=== PATIENT | female | born 1965 | race Caucasian/White ===

== ENCOUNTER 2021-09-07 08:02 | Outpatient (CLI) | payer BC, SELFPAY ==
[2021-09-07 12:01] LABS: Albumin* 4.4 g/dL (3.3-5.0); Chloride* 104 mmol/L (96-114); Sodium* 139 mmol/L (135-149)
[2021-09-07 12:03] LABS: Cholesterol* 174 mg/dL (90-199)
[2021-09-07 12:04] LABS: Aspartate Amino Transferase* 37 U/L (12-35); Blood Urea Nitrogen* 12 mg/dL (7-30); Carbon Dioxide* 30 mmol/L (20-32); Creatinine* 0.6 mg/dL (0.5-1.5); Estimated Glomerular Filt Rate 105 ml/min; Glucose* 90 mg/dL (60-115); Total Protein* 6.8 g/dL (6.0-8.3); Triglycerides* 263 mg/dL (40-149)
[2021-09-07 12:05] LABS: Alanine Aminotransferase* 27 U/L (4-35); Alkaline Phosphatase* 100 U/L (40-150); Calcium* 10.1 mg/dL (8.4-10.6); HDL Cholesterol* 45 mg/dL (>=50); LDL Cholesterol Calculated 76 mg/dL (<100)
== END 2021-09-07 08:03 | disposition home or self-care (01) ==
PROVIDERS: PCP Family Medicine; Visit Provider Family Medicine
DX: Z00.00 Encounter for general adult medical examination without abnormal findings (principal); E78.5 Hyperlipidemia, unspecified; F32.A Depression, unspecified; L98.9 Disorder of the skin and subcutaneous tissue, unspecified
CPT/HCPCS: 80053; 80061

== ENCOUNTER 2022-10-03 09:19 | Outpatient (CLI) | payer BC, SELFPAY | END 2022-10-03 09:20 | disposition home or self-care (01) | PROVIDERS: PCP Family Medicine; Visit Provider Family Medicine | DX: Z00.00 Encounter for general adult medical examination without abnormal findings (principal); E78.5 Hyperlipidemia, unspecified; R35.0 Frequency of micturition; I48.20 Chronic atrial fibrillation, unspecified | CPT/HCPCS: 80048; 80061; 81015; 84460; 87086 ==

== ENCOUNTER 2023-08-31 15:13 | Outpatient (CLI) | payer OTHER, SELFPAY ==
--- OUTSIDE RECORDS SUMMARY | 2023-08-31 15:20 | XMS_ITS | Clinical Summary ---
Author Organization [place] Address [address] [place], [place] [address]. [place] [address] Care Team Providers Care Motorboat Mechanic Inboard/Outboard Name Role Phone Tita Small MD Primary Care Provider + Allergies No known active allergies Medications Medication Sig Dispensed Refills Start Date End Date Status buPROPion (WELLBUTRIN) 75 MG tablet Take by mouth daily Active aspirin 81 MG tabletIndications:Paro xysmal atrial fibrillation (H) Take 1 tablet (81 mg) by mouth daily 30 tablet 3 10/25/2016 Active atorvastatin (LIPITOR) 10 MG tablet Take 10 mg by mouth daily Active cyanocobalamin (VITAMIN B-12) 1000 MCG tablet Take 1,000 mcg by mouth daily Active Ginseng 250 MG CAPS Take 1 capsule by mouth daily Active Active Problems No known active problems Encounters Date Type Department Care Team Description 08/22/2023 8:50 AM CDT Ancillary Procedure [facility] [place] [address] [facility] [address] [place] [address] Kathryn Cook MD Cardiac pacemaker in situ 08/22/2023 Travel 08/20/[address] [facility] [address] [facility] [address] [place] [phone] Sarah Holt RN Atrioventricular block, complete (H) (Primary Dx); Permanent atrial fibrillation (H) from Last 3 Months Family History Medical History Relation Comments Pacemaker Other Coronary Artery Disease Early Onset No family hx of Relation Status Comments Other Social History Tobacco Use Types Packs/Day Years Used Date Smoking Tobacco: Former Smokeless Tobacco: Never Alcohol Use Standard Drinks/Week Comments Not Currently 0 (1 standard drink = 0.6 oz pur e alcohol) Adolescent Education Answer Date Record ed Getting School Help Needed Not on file 11/10 Sex and Gender Information Value Date Recorded Sex Assigned at Not on file Gender Identity Not on file Sexual Orientation Not on file Last Filed Vital Signs Vital Sign Reading Time Taken Comments Blood Pressure 110/80 12/07/2021 2:06 PM CDT Pulse 60 12/07/2021 2:06 PM CDT Temperature 36.5 ??C (97.7 ??F) 08/17/2016 6:55 AM CD T Respiratory Rate 11 09/22/2016 12:50 PM CDT Oxygen Saturation 98% 12/07/2021 2:06 PM CDT Inhaled Oxygen Concentration - - Weight 77.6 kg (171 lb) 12/07/2021 2:06 PM CDT Height 165.1 cm (5' 5) 12/07/2021 2:06 PM CDT Body Mass Index 28.46 12/07/2021 2:06 PM CDT Plan of Treatment Upcoming Encounters Date Type Department Care Team (Late st Contact Info) Description 12/03/2023 Ancillary Procedure [facility] [address] [facility] [address] [place] [phone] Kathryn Cook MD [address] [place] [address] 01/22/2024 Ancillary Procedure [facility] [address] [facility] [address] [place] [phone] Kathryn Cook MD [address] [place] [id number] Health Maintenance Due Date Last Done Comments ADVANCE CARE PLANNING 1965 ANNUAL REVIEW OF HM ORDERS 1965 CT COLONOGRAPHY 1965 FIT 1965 FLEX SIG 1965 LIPID 1965 YEARLY PREVENTIVE VISIT 1965 sDNA (Cologuard) 1965 Pneumococcal Vaccine: Pediatrics (0 to 5 Years) and At-Risk Patients (6 to 64 Years) (1 of 2 - PCV) 05/08/1971 COLONOSCOPY 05/08/1975 COLORECTAL CANCER SCREENING 05/08/1975 HIV SCREENING 1980 HEPATITIS C SCREENING 05/08/1983 HEPATITIS B IMMUNIZATION (1 of 3 - 19+ 3-dose series) 1984 LUNG CANCER SCREENING 05/08/2015 ZOSTER IMMUNIZATION (1 of 2) 05/08/2015 PAP 06/15/2018 06/16/2015 MAMMO SCREENING 06/20/2018 06/20/2016 GLUCOSE 08/18/2019 08/17/2016 COVID-19 Vaccine (3 - 2022- season) 2022 06/08/2020, 05/18/2020 PHQ-2 (once per calendar year) 2023 INFLUENZA VACCINE (#1) 2023 DTAP/TDAP/TD IMMUNIZATION (3 - Td or Tdap) 06/23/2027 06/22/2017, 06/10/2013, 03/19/2002, Additional history exists HPV IMMUNIZATION Aged Out No longer e ligible based on patient's age to complete this topic IPV IMMUNIZATION Aged Out No longer e ligible based on patient's age to complete this topic MENINGITIS IMMUNIZATION Aged Out No l onger eligible based on patient's age to complete this topic RSV MONOCLONAL ANTIBODY Aged Out No l onger eligible based on patient's age to complete this topic Medical Devices Implanted Type Area Internet Sales Representative Device Identifier Shelf Expiration Date Model / Serial / Lot Right Atrial Lead-08/17/2016 Implanted:08/17 by Dank Hsieh MD (Quantity not on file) Leads [employer] [id number] / [id number] / Right Ventricular Lead-08/17/2016 Implanted:08/17 by Dank Hsieh MD (Quantity not on file) Leads [employer] [id number] / [id number] / Pacemaker-Sjm Implanted:08/17 by Dank Hsieh MD (Quantity not on file) Pacemaker [employer] ASSURITY MRI [id number] / [id number] / Procedures Procedure Name Priority Date/Time Associated Diagnosis Comments PM DEVICE PROGRAMMING EVAL, SINGLE LEAD PACER Routine 08/22/2023 8:40 AM CDT Cardiac pacemaker in situ BASIC METABOLIC PANEL STAT 08/17/2016 7:20 AM CDT Chronic atrial fibrillation (H) from Last 3 Months or Most Recently Relevant to Health Maintenance Results * PM DEVICE PROGRAMMING EVAL, SINGLE LEAD PACER (08/22/2023 8:40 AM CDT) Date Time Interrogation Session [id number] [employer] Implantable Pulse Generator Internet Sales Representative [facility] [employer] Implantable Pulse Generator Model 2272 Assurity MRI [employer]ONIC Implantable Pulse Generator Serial Number [id number] [employer] Type Interrogation Session In Clinic [facility] Clinic Name [facility] [employer] Implantable Pulse Generator Type Pacemaker [employer] Implantable Pulse Generator Implant Date 20160817 [employer] Implantable Lead Internet Sales Representative [facility] [employer] Implantable Lead Model [id number] Tendril MRI [employer] Implantable Lead Serial Number [id number] [employer] Implantable Lead Implant Date 20160817 [employer] Implantable Lead Polarity Type Bipolar Lead [employer]IC Implantable Lead Location Detail 1 UNKNOWN [employer] Implantable Lead Location Right Atrium [employer] Implantable Lead Connection Status Connected [employer] Implantable Lead Internet Sales Representative [facility] [employer] Implantable Lead Model [id number] Tendril MRI [employer] Implantable Lead Serial Number [id number] [employer]IC Implantable Lead Implant Date 20160817 [employer]IC Implantable Lead Polarity Type Bipolar Lead [employer]IC Implantable Lead Location Detail 1 UNKNOWN [employer] Implantable Lead Location Right Ventricle [employer] Implantable Lead Connection Status Connected [employer] [place] Setting Mode (NBG Code) VVIR [employer] [place] Setting Lower Rate Limit 60 {beats}/ min [employer] [place] Setting Maximum Sensor Rate 130 {beats}/ min [employer] [place] Setting Hysterisis Rate Off [employer] [place] Setting Night Rate Off [employer] Lead Channel Setting Sensing Polarity Bipolar [employer] Lead Channel Setting Sensing Sensitivity 0.5 mV [employer] Lead Channel Setting Sensing Polarity Bipolar [employer] Lead Channel Setting Pacing Polarity Bipolar [employer] Lead Channel Setting Pacing Pulse Width 0.5 ms [employer] Lead Channel Setting Pacing Amplitude 1.375 [employer] Lead Channel Setting Pacing Capture Mode Adaptive [employer] Lead Channel Setting Pacing Polarity Bipolar [employer] Lead Channel Sensing Intrinsic Amplitude 3.2 mV [employer] Lead Channel Pacing Threshold Amplitude 0.75 V [employer] Lead Channel Pacing Threshold Pulse Width 0.5 ms [employer] Lead Channel Impedance Value 425.0 ohm [employer] Lead Channel Sensing Intrinsic Amplitude 3.2 mV [employer] Lead Channel Pacing Threshold Amplitude 1.25 V [employer] Lead Channel Pacing Threshold Pulse Width 0.5 ms [employer] Lead Channel Pacing Threshold Amplitude 1.25 V [employer] Lead Channel Pacing Threshold Pulse Width 0.5 ms [employer] Battery Status Unknown [employer] Battery Remaining Longevity 48 mo [employer] Battery Voltage 2.98 V [employer] [place] Statistic RA Percent Paced 0 % [employer] [place] Statistic RV Percent Paced 98.0 % [employer] Atrial Tachy Statistic Number Of Mode Switches 0.0 [employer] Anatomical Region Laterality Modality Other 08/22/2023 9:09 AM CDT Narrative 08/22/2023 1:[address] (D) Pacemaker Device Check Patient seen in clinic for device evaluation and iterative programming. AP: NA% ?? STRAINER CLEANER: 98 % ?? Mode: VVIR 60 ?? Underlying Rhythm: AF with CHB, no JE at VVI 30 ?? Heart Rate: primarily 60s. See rate response changes below Sensing: slightly low but stable in V (3.9mV) ?? Pacing Threshold: WNL ?? Impedance: WNL ?? Battery Status: 4-4.5yrs estimated longevity ?? Device Site: WN ?? Atrial Arrhythmia: chronic AF, not on AC due to low ChadsVasc score ?? Ventricular Arrhythmia: none Setting Change: slope increased from 10-12 Care Plan: remote in 6 months 01/22/24. (this was previously okayed by Dr. Perez). OV with EP GARCIA due, orders in. ?? Spring, RN I have reviewed and interpreted the device interrogation, settings, programming and nurse's summary. The device is functioning within normal device parameters. I agree with the current findings, assessment and plan. Kathryn Cook MD [facility] CARDI[facility] SERVICES ORDERABLES * Basic metabolic panel (08/17/2016 7:20 AM CDT) Sodium 141 133 - 144 mmol/L [facility] Potassium 3.8 3.4 - 5.3 mmol/L [facility] Chloride 107 94 - 109 mmol/L [facility] Carbon Dioxide 25 20 - 32 mmol/L [facility] Anion Gap 9 3 - 14 mmol/L [facility] Glucose 95 70 - 99 mg/dL [facility] Urea Nitrogen 15 7 - 30 mg/dL [facility] Creatinine 0.56 0.52 - 1.04 mg/dL [facility] GFR Estimate >90 Non GFR Calc >60 mL/min/1. 7m2 [facility] GFR Estimate If Black >90 GFR Calc >60 mL/min/1. 7m2 [facility] Calcium 9.2 8.5 - 10.1 mg/dL [facility] Blood specimen (specimen) 08/17/2016 7:20 AM CDT 08/17/2016 7:37 AM CDT Dank Cedric Hsieh MD LAB - BLOOD ORDERABL ES [facility] [address] [place] [address], [facility] [phone] from Last 3 Months or Most Recently Relevant to Health Maintenance Care Teams Motorboat Mechanic Inboard/Outboard Relationship Specialty Start Date End Date Tita Small MD [facility] [address] [place] [address] PCP - General Family Practice 03/06/18
--- OUTSIDE RECORDS SUMMARY | 2023-08-31 15:21 | XMS_ITS | Encounter Summary ---
Author Organization [place] Address [address] [place] [address] Care Team Providers Care Driver Engineer Name Role Phone Tita Small MD Primary Care Provider + Reason for Visit * CV Testing (Routine) - Pending Review Specialty Diagnoses / Procedures Referred By Contac t Referred To Contact Diagnoses Cardiac pacemaker in situ Procedures Cardiac Device Check - In Clinic Kathryn Cook MD [address] [place] [address] Referral ID Status Reason Start Date Expiration Date V isits Requested Visits Authorized [id number] Pending Review 08/03/2023 08/02/2024 1 1 Encounter Details Date Type Department Care Team (Late st Contact Info) Description 08/22/2023 8:50 AM CDT Ancillary Procedure [facility] Heart [address] [place] [phone] Kathryn Cook MD [address] [place], [place] [phone] Cardiac pacemaker in situ Social History Tobacco Use Types Packs/Day Years [...] on file Sexual Orientation Not on file documented as of this encounter Plan of Treatment Upcoming Encounters Date Type Department Care Team (Late st Contact Info) Description 12/03/2023 Ancillary Procedure [facility] [address] [facility] [address] [place] [phone] Kathryn Cook MD [address] [place] [id number] 01/22/2024 Ancillary Procedure [facility] [address] [facility] [address] [place] [phone] Kathryn Cook MD [address] [place] [id number] documented as of this encounter Procedures Procedure Name Priority Date/Time Associated Diagnosis Comments PM DEVICE PROGRAMMING EVAL, SINGLE LEAD PACER Routine 08/22/2023 8:40 AM CDT Cardiac pacemaker in situ documented in this encounter Results * PM DEVICE PROGRAMMING EVAL, SINGLE LEAD PACER (08/22/2023 8:40 AM CDT) Date Time Interrogation Session [id number] [employer] Implantable Pulse Generator Conflicts Analyst [facility] [employer] Implantable Pulse Generator Model 2272 Assurity MRI MED[employer]ONIC Implantable Pulse Generator Serial Number [id number] [employer] Type Interrogation Session In Clinic [facility] Clinic Name [facility] [employer]IC Implantable Pulse Generator Type Pacemaker [employer]IC Implantable Pulse Generator Implant Date 20160817 [employer] Implantable Lead Conflicts Analyst [facility] [employer] Implantable Lead Model [id number] Tendril MRI [employer]ONIC Implantable Lead Serial Number [id number] MED[employer]ONIC Implantable Lead Implant Date 20160817 [employer]IC Implantable Lead Polarity Type Bipolar Lead [employer]IC Implantable Lead Location Detail 1 UNKNOWN [employer]IC Implantable Lead Location Right Atrium [employer] Implantable Lead Connection Status Connected [employer] Implantable Lead Conflicts Analyst [facility] [employer] Implantable Lead Model [id number] Tendril MRI [employer] Implantable Lead Serial Number [id number] [employer] Implantable Lead Implant Date 20160817 [employer]IC [...] evaluation and iterative programming. AP: NA% ?? DIRECTOR OF MANUFACTURING: 98 % ?? Mode: VVIR 60 ?? Underlying Rhythm: AF with CHB, no JE at VVI 30 ?? Heart Rate: primarily 60s. See rate response changes below Sensing: slightly low but stable in V (3.9mV) ?? Pacing Threshold: WNL ?? Impedance: WNL ?? Battery Status: 4-4.5yrs estimated longevity ?? Device Site: WNL ?? Atrial Arrhythmia: chronic AF, not on AC due to low ChadsVasc score ?? Ventricular Arrhythmia: none Setting Change: slope increased from 10-12 Care Plan: remote in 6 months 01/22/24. (this was previously okayed by Dr. Perez). OV with EP GARCIA due, orders in. ?? Sarah, RN I have reviewed and interpreted the device interrogation, settings, programming and nurse's summary. The device is functioning within normal device parameters. I agree with the current findings, assessment and plan. Kathryn Cook MD CV CARDIAC SERVICES ORDERABLES documented in this encounter Visit Diagnoses Diagnosis Cardiac pacemaker in situ documented in this encounter Care Teams Driver Engineer Relationship Specialty Start Date End Date Tita Small MD [facility] & [address] [address] PCP - General Family Practice 03/06/18 documented as of this encounter
--- OUTSIDE RECORDS SUMMARY | 2023-08-31 15:21 | XMS_ITS | Referral Summary ---
Author Organization [facility] Address [address] [place] [address]. [place] [address] Care Team Providers Care Candy Forming Machine Operator Name Role Phone Tita Small MD Primary Care Provider + Encounters Date Type Department Care Team Description 08/22/2023 Travel 08/22/2023 8:50 AM CDT Ancillary Procedure [facility] [place] [address] [place] [address] [address] [place] [phone] Kathryn Cook MD Cardiac pacemaker in situ 08/20/2023 Orders Only [facility] [address] [facility] [address] [place] [phone] Sarah Holt RN Atrioventricular block, complete (H) (Primary Dx); Permanent atrial fibrillation (H) from Last 3 Months Allergies No known active allergies Medications Medication [...] Active Active Problems No known active problems Social History Tobacco Use Types Packs/Day Years [...] st Contact Info) Description 12/03/2023 Ancillary Procedure [facility] [address] [facility] [address] [place] [phone] Kathryn Cook MD [address] [place] [address] 01/22/2024 Ancillary Procedure [facility] [address] [facility] [address] [place] [phone] Kathryn Cook MD [address] [place] [id number] Medical Devices Implanted Type Area Information Technology Coordinator Device Identifier Shelf Expiration Date Model / Serial / Lot Right Atrial Lead-08/17/2016 Implanted:08/17 by Dank Hsieh MD (Quantity not on file) Leads [employer] [id number] / [id number] / Right Ventricular Lead-08/17/2016 Implanted:08/17 by Dank Hsieh MD (Quantity not on file) Leads [employer] [id number] / [id number] / Pacemaker-Sjm Implanted:08/17 by Dank Hsieh MD (Quantity not on file) Pacemaker [employer] ASSURITY MRI [id number] / [id number] / Procedures Procedure Name Priority Date/Time Associated [...] 8:40 AM CDT) Date Time Interrogation Session [id number] [employer] Implantable Pulse Generator Information Technology Coordinator [facility] [employer] Implantable Pulse Generator Model 2272 Assurity MRI MEDTRONIC Implantable Pulse Generator Serial Number [id number] [employer]IC Type Interrogation Session In Clinic [facility] Clinic Name [facility] [employer]IC Implantable Pulse Generator Type Pacemaker MED[employer]IC Implantable Pulse Generator Implant Date 20160817 [employer] Implantable Lead Information Technology Coordinator [facility] [employer] Implantable Lead Model [id number] Tendril MRI [employer]ONIC Implantable Lead Serial Number [id number] MED[employer]ONIC Implantable Lead Implant Date 20160817 MED[employer]ONIC Implantable Lead Polarity Type Bipolar Lead [employer]IC Implantable Lead Location Detail 1 UNKNOWN MED[employer]ONIC Implantable Lead Location Right Atrium [employer] Implantable Lead Connection Status Connected [employer] Implantable Lead Information Technology Coordinator [facility] [employer] Implantable Lead Model [id number] Tendril MRI [employer]IC Implantable Lead Serial Number [id number] [employer]IC Implantable Lead Implant Date 20160817 MEDTRONIC [...] evaluation and iterative programming. AP: NA% ?? WINDOWS VMWARE ADMINISTRATOR: 98 % ?? Mode: VVIR 60 ?? [...] CDT) Sodium 141 133 - 144 mmol/L [facility] Potassium 3.8 3.4 - 5.3 mmol/L [facility] Chloride 107 94 - 109 mmol/L [facility] Carbon Dioxide 25 20 - 32 mmol/L [facility] Anion Gap 9 3 - 14 mmol/L [facility] Glucose 95 70 - 99 mg/dL [facility] Urea Nitrogen 15 7 - 30 mg/dL [facility] Creatinine 0.56 0.52 - 1.04 mg/dL [facility] GFR Estimate >90 Non GFR Calc >60 mL/min/1. 7m2 [facility] GFR Estimate If Black >90 GFR Calc >60 mL/min/1. 7m2 [facility] Calcium 9.2 8.5 - 10.1 mg/dL [facility] Blood specimen (specimen) 08/17/2016 7:20 AM CDT 08/17/2016 7:37 AM CDT Dank Vásquez MD LAB - BLOOD ORDERABL ES [facility] [address] [address], [facility] [phone] from Last 3 Months or Most Recently Relevant to Health Maintenance Care Teams Candy Forming Machine Operator Relationship Specialty Start Date End Date Tita Small MD [facility] & [address] [address] PCP - General Family Practice 03/06/18
--- OUTSIDE RECORDS SUMMARY | 2023-08-31 15:21 | XMS_ITS | Encounter Summary ---
Author Organization [facility] Address [address] [place] [address] [place] [address] Care Team Providers Care Nursing Support Worker Name Role Phone Tita Small MD Primary Care Provider + Encounter Details Date Type Department Care Team (Latest Contact Info) Description 08/22/2023 Travel Social History Tobacco Use Types Packs/Day Years [...] st Contact Info) Description 12/03/2023 Ancillary Procedure [place] [address] [place] [phone] Kathryn Cook MD [address] [facility] [address] [place] [id number] 01/22/2024 Ancillary Procedure [facility] [address] [facility] [address] [place] [phone] Kathryn Cook MD [address] [facility] [address] [place] [id number] documented as of this encounter Visit Diagnoses Not on filedocumented in this encounter Care Teams Nursing Support Worker Relationship Specialty Start Date End Date Tita Small MD [facility] [address] [place] [address] PCP - General Family Practice 03/06/18 documented as of this encounter
--- OUTSIDE RECORDS SUMMARY | 2023-08-31 15:21 | XMS_ITS | Encounter Summary ---
Author Organization [facility] Address [address] [place] [address] Care Team Providers Care Rn Lactation Consultant Name Role Phone Tita Small MD Primary Care Provider + Reason for Referral * Consultation (Routine: Next available opening) - Pending Review Specialty Diagnoses / Procedures Referred By Contac t Referred To Contact Cardiovascular Disease Diagnoses Atrioventricular block, complete (H) Permanent atrial fibrillation (H) Kathryn Cook MD [address] [facility] [address] [place] [address] Referral ID Status Reason Start Date Expiration Date V isits Requested Visits Authorized [id number] Pending Review 08/20/2023 08/19/2024 1 1 Question Answer Follow-up with: GARCIA Reason for follow-up: EP - AF CHB DEVICE EP Cardiology: DEVICE Scheduling Instructions: [facility] will call you to coordinate your care as prescribed by your provider. If you have concerns about scheduling, please call [phone]. Comments [facility] will call you to coordinate your care as prescribed by your provider. If you have concerns about scheduling, please call [phone]. Encounter Details Date Type Department Care Team (Late st Contact Info) Description 08/20/2023 Orders Only [facility] [address] [facility] [address] [place] [phone] Sarah Holt RN Atrioventricular block, complete (H) (Primary Dx); Permanent atrial fibrillation (H) Social History Tobacco Use Types Packs/Day Years [...] st Contact Info) Description 12/03/2023 Ancillary Procedure [facility] [address] [facility] [address] [place] [phone] Kathryn Cook MD [address] [place] [address] 01/22/2024 Ancillary Procedure [facility] [address] [facility] [address] [place] [phone] Kathryn Cook MD [address] [place] [address] Scheduled Referrals Name Type Priority Associated Diagnoses Orde r Schedule Follow-Up with Cardiology Referral Routine: Next available opening Atrioventricular block, complete (H) Permanent atrial fibrillation (H) Expected: 08/20/2023 (Approximate), Expires: 08/19/2024 documented as of this encounter Visit Diagnoses Diagnosis Atrioventricular block, complete (H)- Primary Atrioventricular block, complete Permanent atrial fibrillation (H) Atrial fibrillation documented in this encounter Care Teams Rn Lactation Consultant Relationship Specialty Start Date End Date Tita Small MD [facility] [address] [place] [address] PCP - General Family Practice 03/06/18 documented as of this encounter
== END 2023-08-31 15:14 | disposition home or self-care (01) ==
LOC: NFLDREF 15:19
PROVIDERS: PCP Family Medicine; Visit Provider Registered Nurse
DX: N39.0 Urinary tract infection, site not specified (principal)
CPT/HCPCS: 80048; 87086

== ENCOUNTER 2023-10-17 10:25 | Outpatient (CLI) | payer OTHER, SELFPAY ==
--- OUTSIDE RECORDS SUMMARY | 2023-10-17 10:36 | XMS_ITS | Referral Summary ---
Author Organization [facility] Address [address] [place] [address]. [place] [address] Care Team Providers Care Fourdrinier Machine Tender Name Role Phone Tita Small MD Primary Care Provider + Encounters Date Type Department Care Team Description 08/22/2023 Travel 08/22/2023 8:50 AM CDT Ancillary Procedure [facility] [place] [id number] [place] [address] [address] [place] [phone] Kathryn Cook MD Cardiac pacemaker in situ 08/20/2023 Orders Only [facility] [address] [facility] [address] [place] [phone] Sarah Holt RN Atrioventricular block, complete (H) [...] st Contact Info) Description 12/03/2023 Ancillary Procedure [facility] [address] [facility] [address] [place] [phone] Kathryn Cook MD [address] [place] [id number] 01/22/2024 Ancillary Procedure [facility] [address] [place] [phone] Kathryn Cook MD [address] [place] [id number] Medical Devices Implanted Type Area Site Reliability Engineer Device Identifier Shelf Expiration Date Model / Serial / Lot Right Atrial Lead-08/17/2016 Implanted:08/17 by Dank Hsieh MD (Quantity not on file) Leads [employer] [id number] / [id number] / Right Ventricular Lead-08/17/2016 Implanted:08/17 by Dank Hsieh MD (Quantity not on file) Leads [employer] [id number] / [id number] / Pacemaker-Sjm Implanted:08/17 by Dank Hsieh MD (Quantity not on file) Pacemaker [employer] ASSURITY MRI [id number] / [id number] / Procedures Procedure Name Priority Date/Time Associated [...] 8:40 AM CDT) Date Time Interrogation Session [id number] [employer] Implantable Pulse Generator Site Reliability Engineer [facility] [employer] Implantable Pulse Generator Model 2272 Assurity MRI [employer] Implantable Pulse Generator Serial Number [id number] [employer] Type Interrogation Session In Clinic [employer] Clinic Name [facility] [employer] Implantable Pulse Generator Type Pacemaker [employer] Implantable Pulse Generator Implant Date 20160817 [employer] Implantable Lead Site Reliability Engineer [facility] [employer] Implantable Lead Model [id number] Tendril MRI [employer] Implantable Lead Serial Number [id number] [employer] Implantable Lead Implant Date 20160817 [employer] Implantable Lead Polarity Type Bipolar Lead [employer] Implantable Lead Location Detail 1 UNKNOWN [employer] Implantable Lead Location Right Atrium [employer] Implantable Lead Connection Status Connected [employer] Implantable Lead Site Reliability Engineer [facility] [employer] Implantable Lead Model [id number] Tendril MRI [employer] Implantable Lead Serial Number [id number] [employer] Implantable Lead Implant Date 20160817 [employer] [...] evaluation and iterative programming. AP: NA% ?? EMERGENCY PREPAREDNESS MANAGER: 98 % ?? Mode: VVIR 60 ?? [...] CDT) Sodium 141 133 - 144 mmol/L [facility] Potassium 3.8 3.4 - 5.3 mmol/L [facility] Chloride 107 94 - 109 mmol/L [facility] Carbon Dioxide 25 20 - 32 mmol/L [facility] Anion Gap 9 3 - 14 mmol/L [facility] Glucose 95 70 - 99 mg/dL [facility] Urea Nitrogen 15 7 - 30 mg/dL [facility] Creatinine 0.56 0.52 - 1.04 mg/dL [facility] GFR Estimate >90 Non GFR Calc >60 mL/min/1. 7m2 [facility] GFR Estimate If Black >90 GFR Calc >60 mL/min/1. 7m2 [facility] Calcium 9.2 8.5 - 10.1 mg/dL [facility] Blood specimen (specimen) 08/17/2016 7:20 AM CDT 08/17/2016 7:37 AM CDT Dank Vásquez MD LAB - BLOOD ORDERABL ES [facility] [address] [place] [address], [facility] [phone] from Last 3 Months or Most Recently Relevant to Health Maintenance Care Teams Fourdrinier Machine Tender Relationship Specialty Start Date End Date Tita Small MD [facility] & [address] [address] PCP - General Family Practice 03/06/18
--- OUTSIDE RECORDS SUMMARY | 2023-10-17 10:36 | XMS_ITS | Encounter Summary ---
Author Organization [facility] Address [address] [place] [address] Care Team Providers Care Vmware Consultant Name Role Phone Tita Small MD Primary Care Provider + Reason for Visit * CV Testing (Routine) - Pending Review Specialty Diagnoses / Procedures Referred By Contac t Referred To Contact Diagnoses Cardiac pacemaker in situ Procedures Cardiac Device Check - In Clinic Kathryn Cook MD [address] [place] [address] Referral ID Status Reason Start Date Expiration Date V isits Requested Visits Authorized [id number] Pending Review 08/03/2023 08/02/2024 1 1 Encounter Details Date Type Department Care Team (Late st Contact Info) Description 08/22/2023 8:50 AM CDT Ancillary Procedure [facility] Heart [address] [place] [phone] Kathryn Cook MD [address] [place], [place] [id number] Cardiac pacemaker in situ Social History Tobacco [...] st Contact Info) Description 12/03/2023 Ancillary Procedure [facility] [address] [facility] [address] [place] [phone] Kathryn Cook MD [address] [place] [id number] 01/22/2024 Ancillary Procedure [facility] [address] [facility] [address] [place] [phone] Kathryn Cook MD [address] [place] [id number] documented as of this encounter Procedures Procedure Name Priority Date/Time Associated Diagnosis Comments PM DEVICE PROGRAMMING EVAL, SINGLE LEAD PACER Routine 08/22/2023 8:40 AM CDT Cardiac pacemaker in situ documented in this encounter Results * PM DEVICE PROGRAMMING EVAL, SINGLE LEAD PACER (08/22/2023 8:40 AM CDT) Date Time Interrogation Session [id number] [employer] Implantable Pulse Generator Memory Care Program Resident [facility] [employer] Implantable Pulse Generator Model 2272 Assurity MRI [employer] Implantable Pulse Generator Serial Number [id number] [employer] Type Interrogation Session In Clinic [employer] Clinic Name [facility] [employer] Implantable Pulse Generator Type Pacemaker [employer] Implantable Pulse Generator Implant Date 20160817 [employer] Implantable Lead Memory Care Program Resident [facility] [employer] Implantable Lead Model [id number] Tendril MRI [employer] Implantable Lead Serial Number [id number] [employer] Implantable Lead Implant Date 20160817 [employer] Implantable Lead Polarity Type Bipolar Lead [employer] Implantable Lead Location Detail 1 UNKNOWN [employer] Implantable Lead Location Right [facility] [employer] Implantable Lead Connection Status Connected [employer] Implantable Lead Memory Care Program Resident [facility] [employer] Implantable Lead Model [id number] Tendril MRI [employer] Implantable Lead Serial Number [id number] [employer] Implantable Lead Implant Date 20160817 [employer] [...] evaluation and iterative programming. AP: NA% ?? PARTY PLAN SALES AGENT: 98 % ?? Mode: VVIR 60 ?? [...] situ documented in this encounter Care Teams Vmware Consultant Relationship Specialty Start Date End Date Tita Small MD [facility] & [address] [address] PCP - General Family Practice 03/06/18 documented as of this encounter
--- OUTSIDE RECORDS SUMMARY | 2023-10-17 10:36 | XMS_ITS | Clinical Summary ---
Author Organization [facility] Address [address] [place], [place] [address] [address] Care Team Providers Care Collections Agent Name Role Phone Tita Small MD Primary [...] Description 08/22/2023 8:50 AM CDT Ancillary Procedure [facility] [place] [address] [facility] [address] [place] [address] Kathryn Cook MD Cardiac pacemaker in situ 08/22/2023 Travel 08/20/[address] [facility] [address] [facility] [address] [place] [phone] Sarah Holt RN Atrioventricular block, complete (H) [...] st Contact Info) Description 12/03/2023 Ancillary Procedure [facility] [address] [facility] [address] [place] [phone] Kathryn Cook MD [address] [place] [address] 01/22/2024 Ancillary Procedure [facility] [address] [facility] [address] [place] [phone] Kathryn Cook MD [address] [place] [address] Health Maintenance Due Date Last Done Comments [...] this topic Medical Devices Implanted Type Area Manager Utilization Management Device Identifier Shelf Expiration Date Model / Serial / Lot Right Atrial Lead-08/17/2016 Implanted:08/17 by Dank Hsieh MD (Quantity not on file) Leads [employer] [id number] / [id number] / Right Ventricular Lead-08/17/2016 Implanted:08/17 by Dank Hsieh MD (Quantity not on file) Leads [employer] [id number] / [id number] / Pacemaker-Sjm Implanted:08/17 by Dank Hsieh MD (Quantity not on file) Pacemaker [employer] ASSURITY MRI [id number] / [id number] / Procedures Procedure Name Priority Date/Time Associated [...] 8:40 AM CDT) Date Time Interrogation Session [id number] [employer] Implantable Pulse Generator Manager Utilization Management [facility] [employer] Implantable Pulse Generator Model 2272 Assurity MRI [employer] Implantable Pulse Generator Serial Number [id number] [employer] Type Interrogation Session In Clinic [facility] Clinic Name [facility] [employer] Implantable Pulse Generator Type Pacemaker [employer] Implantable Pulse Generator Implant Date 20160817 [employer] Implantable Lead Manager Utilization Management [facility] [employer] Implantable Lead Model [id number] Tendril MRI [employer] Implantable Lead Serial Number [id number] [employer] Implantable Lead Implant Date 20160817 [employer] Implantable Lead Polarity Type Bipolar Lead [employer] Implantable Lead Location Detail 1 UNKNOWN [employer] Implantable Lead Location Right Atrium [employer] Implantable Lead Connection Status Connected [employer] Implantable Lead Manager Utilization Management [facility] [employer] Implantable Lead Model [id number] Tendril MRI [employer] Implantable Lead Serial Number [id number] [employer] Implantable Lead Implant Date 20160817 [employer] [...] evaluation and iterative programming. AP: NA% ?? HANDCREW FOREMAN: 98 % ?? Mode: VVIR 60 ?? [...] CDT) Sodium 141 133 - 144 mmol/L [facility] Potassium 3.8 3.4 - 5.3 mmol/L [facility] Chloride 107 94 - 109 mmol/L [facility] Carbon Dioxide 25 20 - 32 mmol/L [facility] Anion Gap 9 3 - 14 mmol/L [facility] Glucose 95 70 - 99 mg/dL [facility] Urea Nitrogen 15 7 - 30 mg/dL [facility] Creatinine 0.56 0.52 - 1.04 mg/dL [facility] GFR Estimate >90 Non GFR Calc >60 mL/min/1. 7m2 [facility] GFR Estimate If Black >90 GFR Calc >60 mL/min/1. 7m2 [facility] Calcium 9.2 8.5 - 10.1 mg/dL [facility] Blood specimen (specimen) 08/17/2016 7:20 AM CDT 08/17/2016 7:37 AM CDT Dank Cedric Hsieh MD LAB - BLOOD ORDERABL ES [facility] [address] [place] [address], [facility] [phone] from Last 3 Months or Most Recently Relevant to Health Maintenance Care Teams Collections Agent Relationship Specialty Start Date End Date Tita Small MD [facility] & [facility] [address] [place] [address] PCP - General Family Practice 03/06/18
--- OUTSIDE RECORDS SUMMARY | 2023-10-17 10:36 | XMS_ITS | Encounter Summary ---
Author Organization [facility] Address [address] [place] [address] [place] [address] Care Team Providers Care Distributed Generation Project Manager Name Role Phone Tita Small MD Primary [...] Contact Info) Description 12/03/2023 Ancillary Procedure [facility] [place] [address] [place] [phone] Kathryn Cook MD [address] [facility] [address] [place] [address] 01/22/2024 Ancillary Procedure [facility] [address] [facility] [address] [place] [phone] Kathryn Cook MD [address] [facility] [address] [place] [id number] documented as of this encounter Visit Diagnoses Not on filedocumented in this encounter Care Teams Distributed Generation Project Manager Relationship Specialty Start Date End Date Tita Small MD [facility] [address] [place] [address] PCP - General Family Practice 03/06/18 documented as of this encounter
--- OUTSIDE RECORDS SUMMARY | 2023-10-17 10:37 | XMS_ITS | Encounter Summary ---
Author Organization [facility] Address [address] [place] [address] Care Team Providers Care Supervisor Wire Rope Fabrication Name Role Phone Tita Small MD Primary Care Provider + Reason for Referral * Consultation (Routine: Next available opening) - Pending Review Specialty Diagnoses / Procedures Referred By Contac t Referred To Contact Cardiovascular Disease Diagnoses Atrioventricular block, complete (H) Permanent atrial fibrillation (H) Kathryn Cook MD [address] [facility] [address] [place] [address] Referral ID Status Reason Start Date Expiration Date V isits Requested Visits Authorized [id number] Pending Review 08/20/2023 08/19/2024 1 1 Question Answer Follow-up with: GARCIA Reason for follow-up: EP - AF CHB DEVICE EP Cardiology: DEVICE Scheduling Instructions: [facility] will call you to coordinate your care as prescribed by your provider. If you have concerns about scheduling, please call [phone]. Comments [facility] will call you to coordinate your care as prescribed by your provider. If you have concerns about scheduling, please call [phone]. Encounter Details Date Type Department Care Team (Late st Contact Info) Description 08/20/2023 Orders Only [facility] [address] [facility] [address] [place] [phone] Sarah Holt RN Atrioventricular block, complete (H) [...] st Contact Info) Description 12/03/2023 Ancillary Procedure [facility] [address] [facility] [address] [place] [phone] Kathryn Cook MD [address] [place] [phone] 01/22/2024 Ancillary Procedure [facility] [address] [facility] [address] [place] [phone] Kathryn Cook MD [address] [place] [address] Scheduled Referrals Name Type Priority Associated Diagnoses Orde r Schedule Follow-Up with Cardiology Referral Routine: Next available opening Atrioventricular block, complete (H) Permanent atrial fibrillation (H) Expected: 08/20/2023 (Approximate), Expires: 08/19/2024 documented as of this encounter Visit Diagnoses Diagnosis Atrioventricular block, complete (H)- Primary Atrioventricular block, complete Permanent atrial fibrillation (H) Atrial fibrillation documented in this encounter Care Teams Supervisor Wire Rope Fabrication Relationship Specialty Start Date End Date Tita Small MD [facility] & [facility] [address] [place] [address] PCP - General Family Practice 03/06/18 documented as of this encounter
== END 2023-10-17 10:26 | disposition home or self-care (01) ==
PROVIDERS: PCP Family Medicine; Visit Provider Family Medicine
DX: Z00.00 Encounter for general adult medical examination without abnormal findings (principal); E78.5 Hyperlipidemia, unspecified; I48.20 Chronic atrial fibrillation, unspecified; F41.9 Anxiety disorder, unspecified
CPT/HCPCS: 80048; 80061; 84460

== ENCOUNTER 2024-04-01 15:45 | Outpatient (CLI) | payer OTHER, SELFPAY | END 2024-04-01 15:46 | disposition home or self-care (01) | LOC: MAMMO 15:45 | PROVIDERS: PCP Family Medicine; Visit Provider Family Medicine | DX: Z12.31 Encounter for screening mammogram for malignant neoplasm of breast (principal); R92.333 Mammographic heterogeneous density, bilateral breasts | CPT/HCPCS: 77063; 77067 ==

== ENCOUNTER 2024-10-17 09:04 | Outpatient (CLI) | payer OTHER, SELFPAY | END 2024-10-17 09:05 | disposition home or self-care (01) | PROVIDERS: PCP Family Medicine; Visit Provider Family Medicine | DX: E78.2 Mixed hyperlipidemia (principal); F32.A Depression, unspecified; F41.1 Generalized anxiety disorder | CPT/HCPCS: 80048; 80061; 84460 ==